=== PATIENT | female | born 1960 | race Native Hawaiian/Other Pacific Islander ===

== ENCOUNTER 2021-02-06 14:17 | Outpatient (CLI) | payer OTHER ==
--- NOTE | 2021-02-06 15:17 | SLEEP CARE CONSULTATION ---
Information from patient questionnaire entered by Edward Randle MA. I have reviewed and concur with the information entered by Edward Randle MA. This document represents the service I personally performed and the decisions made by , Amelie Guzman ARNP. History of Present Illness Service Date and Time: 02/06/2021 1417 Reason for Visit: sleep apnea on CPAP therapy, Re-establish care, Other (UP DATE SUPPLIES ) Chief Complaint: reports: Other (needs new device) Date of Onset: 2011 Usual bedtime: 1000 PM Time it takes to fall asleep: 10 MINUTES OR LESS Snores at night: Yes Observed to quit breathing while asleep: Yes Sleeps alone due to snoring: No Number of times waking at night: 2 - 3 TIMES Reasons for waking at night: reports: Other (TO WARM ) Toss, Turn, or Twitch while sleeping: No Recalls having dreams: Yes Usually gets out of bed at: 0500 Feels refreshed in the morning: Yes Morning headache: No Sleepy or fatigued during the day: Yes Ever fallen asleep while driving: No Takes day naps: No Prior sleep studies: Yes Additional HPI information: ESTELLE AREVALO was previously diagnosed to have severe, AHI 57.5, obstructive sleep apnea-hypopnea syndrome and comes in today to re-establish care for CPAP therapy. - Parasomnia Symptoms Ever been unable to move upon waking from sleep: No Walks in sleep: No Talks in sleep: No Ever acted out dreams in sleep: No Ever felt weak in the knees when startled or emotional: No Bothered by creepy, crawly, restless sensations in legs: No Problems with memory or concentration: No CPAP Compliance Data - Data Reviewed with Patient Average duration of nightly device use: 6 hours 25 minutes Compliance rate %: 99 Current pressure setting (cmH2O): 6-11 (avg 10.9) Average residual AHI: 4.8 Central apnea: 0.1 Obstructive apnea: 4.3 Compliance data discussion: She has been getting her supplies from [employer] She is using a nasal cushion mask. She last changed out the mask 2 months ago. She states she has a back up mask if needed. She states she uses her CPAP nightly and gets between 6-6.5 hours usually. She has had her machine since she was diagnosed and she has been getting messages on device that it is past its use life. Subjective Patient concerns: denies: aerophagia, mask discomfort, air blowing in eyes, mask leak noise, condensation in mask/hose, nasal congestion, dry mouth, nose, throat, epistaxis, other Observed to snore while using device: No Current pressure setting perceived as: comfortable On therapy, patient: reports: sleeping better, awakening more refreshed, being more awake and alert during the day, more rested overall. 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 Patient is and lives in [place]. Have you smoked in the past 12 months: No Alcohol use: No Caffeine use: Yes Caffeine amount and frequency: 1 CUP DAILY Family History Family Hx Sleep Apnea: Mother: Snoring, Sleep apnea - Untreated, Other: Sleep apnea - Treated Allergies and Home Medications Drug allergies reviewed: Yes (NKDA) Home medication list reviewed: Yes Allergy and home medication list: Ergocalciferol 1.25 mg capsule, 1x week until Mar. Aspirin 81 mg daily Losartan 25 mg daily Atorvastatin 40 mg daily Pioglitazone 15 mg daily Levemir Pen 20 units 2 times day Trulicity Pen 3 mg 1x weekly Review of Systems Weight gain over past 5 years: 20 Cardiovascular: reports: high blood pressure Gastrointestinal: denies: heartburn Neurological: denies: headaches Psychiatric: denies: anxiety, depression Musculoskeletal: reports: joint swelling Physical Exam Vital signs obtained and entered by: Luis Randle CMA [facility] Blood Pressure: 124/79 (left) Cuff size: wrist Heart Rate: 73 O2 Saturation: 100 (with mask) Height: 5 ft Weight: 159 lb Body Mass Index: 31.0 BMI Classification: Obese Heart: regular rate and rhythm Lungs: clear bilaterally Impression and Plan 1. Obstructive Sleep Apnea-Hypopnea Syndrome, severe, with good treatment compliance and good apnea control. On CPAP therapy, the patient has better sleep quality and is more rested overall. Patient states she has been getting her supplies from [employer] Her ResMed CPAP machine, that she got in 2013, has been giving her a message saying it is at its end-of-life. She is here to get a replacement device. The patients CPAP is over 5 years old and of reasonable use. Thus, the CPAP will be updated. Once I am able to get a copy of her last sleep study, a DWO prescription will be made. Compliance guidelines for new device and follow up discussed. Patient's apnea severity and rationale for treatment to reduce apnea, improve sleep quality and reduce cardiovascular and cerebrovascular events was reviewed. I also reviewed the benefit of consistent device use of CPAP for hypertension and diabetes. Patient was encouraged to lose weight for their overall health and to reduce apneas. Patient voiced understanding. * Continue auto CPAP pressure at 6-11 cmH2O * Obtain copy of last sleep study * Update device * Update supplies as needed * Notify me if snoring with mask or feeling that the pressure is too much or too little * Attempt to lose weight * Call this office if any problems using CPAP * Return for follow up one month after obtaining new device, or sooner if concerns arise Counseling Topics: Spare mask, Weight loss health impact Visit Type: In Office Time Spent with Patient (minutes): 31 Provider Statement: I spent 100% of the Face to Face Visit with the patient with greater than 50% spent counseling the patient and coordination of care.
[2021-02-06 15:18] VITALS: BP 124/79
== END 2021-02-06 14:18 | disposition home or self-care (01) ==
LOC: SC 14:17
PROVIDERS: ATTEND Nurse Practitioner Family
DX: G47.33 Obstructive sleep apnea (adult) (pediatric) (principal); E66.9 Obesity, unspecified; Z68.31 Body mass index [BMI] 31.0-31.9, adult
CPT/HCPCS: 99203; 99212

== ENCOUNTER 2021-06-17 10:37 | Outpatient (CLI) | payer OTHER ==
[2021-06-17 11:32] VITALS: BP 119/69
--- NOTE | 2021-06-17 11:32 | SLEEP CARE CONSULTATION ---
Information from patient questionnaire entered by Edward Randle MA. I have reviewed and concur with the information entered by Edward Randle MA. This document represents the service I personally performed and the decisions made by , Amelie Guzman ARNP. History of Present Illness Service Date and Time: 06/17/2021 1037 Previous diagnosis: Severe, Obstructive Sleep Apnea-Hypopnea Syndrome AHI: 57.5 (in 2011) Reason for follow up: first compliance after device update (SIS, ROTECH, ) Equipment type: CPAP Equipment obtained from: [employer] (getting supplies as needed) Mask style: Nasal Mask brand: Resmed Backup mask available: Yes (old mask) Last cushion change: 1 month Prior sleep studies: Yes HPI additional information: ESTELLE AREVALO was diagnosed to have severe, AHI 57.5, obstructive sleep apnea- hypopnea syndrome and returned today for CPAP therapy first compliance after updating device follow-up. Sleep Study - Results Prior sleep studies: Yes CPAP Compliance Data - Data Reviewed with Patient Average duration of nightly device use: 6 hours 30 minutes Compliance rate %: 100 Current pressure setting (cmH2O): 6-11 (95% avg 8.0) Average residual AHI: 3 Average large leak: 0 Subjective Patient concerns: reports: condensation in mask/hose (not often; just adjusted humidity). denies: aerophagia, mask discomfort, air blowing in eyes, mask leak noise, nasal congestion, dry mouth, nose, throat, epistaxis, other Observed to snore while using device: No Current pressure setting perceived as: comfortable On therapy, patient: reports: sleeping better, awakening more refreshed, being more awake and alert during the day, more rested overall. denies: drowsiness while driving Initial [place] Sleepiness Scale score: 8 (IN 2020) Current [place] Sleepiness Scale score: 6 (06/09) Allergies and Home Medications Known drug allergies: No Home medication list reviewed: Yes (Glipizide 2.5 mg, started in March) Review of Systems Review of systems same as previous: Yes (no changes) Physical Exam Vital signs obtained and entered by: Luis RANDLE CMA, AAMA Blood Pressure: 119/69 (RIGHT, PULSE 76, RESP 18, ) Heart Rate: 75 O2 Saturation: 99 (N94) Height: 5 ft Weight: 165 lb Weight change since last visit: 6 lb gain Body Mass Index: 32.2 BMI Classification: Obese Impression and Plan 1. Obstructive Sleep Apnea-Hypopnea Syndrome, severe, with excellent treatment compliance and good apnea control. On CPAP therapy, the patient has better sleep quality and is more rested overall. Patient has a new Sis II CPAP device. She had a little trouble on 2 nights with condensation in the tubing. She states on those nights her had turned the air conditioner on. She has a heated hose that she can use if the condensation starts becoming more often. She is aware of how to adjust the heated hose on her machine. She has no other issues or concerns with using her CPAP. She has significant improvement of her sleep apnea with using the CPAP device. Patient's apnea severity and rationale for treatment to reduce apnea, improve sleep quality and reduce cardiovascular and cerebrovascular events was reviewed. I also reviewed the benefit of consistent device use of CPAP for hypertension and diabetes. 2. Obesity, unspecified. Patient has gained weight. Currently patients BMI is 32.2. Obesity increases the risk of apnea, CPAP pressure requirements and overall health risks especially cardiovascular and diabetes. Thus patient is advised to try to lose weight. Weight loss can be done with reducing portion size, reducing refined foods and balancing content with vegetables, fruit and whole grain foods. In addition, patient encouraged to get regular exercise. Patient is diabetic and going to see her PCP to look at her meds to see if they are contributing to her weight gain. She is also going to follow up with her diabetic dietitian. * Continue auto CPAP pressure at 6-11 cmH2O * Notify me if snoring with mask or feeling that the pressure is too much or too little * Attempt to lose weight * Call this office if any problems using CPAP * Return for follow up in 1 year, or sooner if concerns arise Counseling Topics: Spare mask, Weight loss health impact Visit Type: In Office Time Spent with Patient (minutes): 25 Provider Statement: I spent 100% of the Face to Face Visit with the patient with greater than 50% spent counseling the patient and coordination of care.
== END 2021-06-17 10:38 | disposition home or self-care (01) ==
LOC: SC 10:37
PROVIDERS: ATTEND Nurse Practitioner Family
DX: G47.33 Obstructive sleep apnea (adult) (pediatric) (principal); E66.9 Obesity, unspecified; Z68.32 Body mass index [BMI] 32.0-32.9, adult
CPT/HCPCS: 99212; 99213

== ENCOUNTER 2022-07-06 15:45 | Outpatient (CLI) | payer OTHER ==
--- NOTE | 2022-07-06 16:40 | SLEEP CARE CONSULTATION ---
Information from patient questionnaire entered by Mee Bourne. I have reviewed and concur with the information entered by Mee Bourne. This document represents the service I personally performed and the decisions made by me, Amelie Guzman ARNP. History of Present Illness Service Date and Time: 07/06/2022 1545 Previous diagnosis: Severe, Obstructive Sleep Apnea-Hypopnea Syndrome AHI: 57.5 (in 2011) Reason for follow up: annual (LAST SEEN 05/2021) Equipment type: CPAP (Sis 3B; SD NEEDED FOR DOWNLOAD AND PRESSURE CHANGES) Equipment obtained from: [employer] (getting supplies as needed) Mask style: Nasal Mask brand: Respironics (Dreamwear) Backup mask available: Yes (old mask) Last cushion change: in Mar Prior sleep studies: Yes HPI additional information: ESTELEL AREVALO was diagnosed to have severe, AHI 57.5, obstructive sleep apnea- hypopnea syndrome and returned today for CPAP therapy annual follow-up. Sleep Study - Results Prior sleep studies: Yes CPAP Compliance Data Compliance data discussion: Sis site is down and we are unable to get her compliance and therapy data. Subjective Missed days of use due to: reports: family emergency, other (fall asleep without it) Patient concerns: denies: aerophagia, mask discomfort, air blowing in eyes, mask leak noise, condensation in mask/hose, nasal congestion, dry mouth, nose, throat, epistaxis Observed to snore while using device: No Current pressure setting perceived as: comfortable On therapy, patient: reports: sleeping better, awakening more refreshed, being more awake and alert during the day, more rested overall. denies: drowsiness while driving Initial [place] Sleepiness Scale score: 8 (IN 2020) Current [place] Sleepiness Scale score: 7 (07/06/22) Allergies and Home Medications Known drug allergies: Yes (Jardiance) Drug allergies reviewed: Yes Home medication list reviewed: Yes (glipizide) Review of Systems Review of systems same as previous: Yes (no changes) Physical Exam Vital signs obtained and entered by: MEE Menendez MA Blood Pressure: 120/70 (left arm) Cuff size: regular Heart Rate: 72 O2 Saturation: 99 Height: 5 ft Weight: 174 lb 3.2 oz Body Mass Index: 34.0 BMI Classification: Obese Impression and Plan 1. Obstructive Sleep Apnea-Hypopnea Syndrome, severe, with unknown treatment compliance and unknown apnea control. On CPAP therapy, the patient has better sleep quality and is more rested overall. There was a problem with the [employer] website and we were unable to get her data. As soon as I get the data, I will amend my note with her compliance and therapy information. Patient's apnea severity and rationale for treatment to reduce apnea, improve sleep quality and reduce cardiovascular and cerebrovascular events was reviewed. I also reviewed the benefit of consistent device use of CPAP for hypertension and diabetes. 2. Obesity, unspecified. Currently patients BMI is 34.0. Obesity increases the risk of apnea, CPAP pressure requirements and overall health risks especially cardiovascular and diabetes. Thus patient is advised to lose weight. * Continue auto CPAP pressure at 6-11 cmH2O * Update supplies * Notify me if snoring with mask or feeling that the pressure is too much or too little * Attempt to lose weight * Call this office if any problems using CPAP * Return for follow up in 1 year, or sooner if concerns arise Counseling Topics: Spare mask, Weight loss health impact Visit Type: In Office Time Spent with Patient (minutes): 20 Provider Statement: I spent 100% of the Face to Face Visit with the patient with greater than 50% spent counseling the patient and coordination of care.
[2022-07-06 16:43] VITALS: BP 120/70
== END 2022-07-06 15:46 | disposition home or self-care (01) ==
LOC: SC 15:45
PROVIDERS: ATTEND Nurse Practitioner Family
DX: G47.33 Obstructive sleep apnea (adult) (pediatric) (principal); E66.9 Obesity, unspecified; Z68.34 Body mass index [BMI] 34.0-34.9, adult
CPT/HCPCS: 99212; 99213